=== PATIENT | female | born 1955 | race Caucasian/White ===

== ENCOUNTER → 2017-09-17 | Outpatient (CLI) | payer OTHER ==
[~2017-09-17] MED LIST: DENO60P SQ; HYDR-3583 PO; LYSI1000 PO; PLAQ200T PO; SULF500T3 PO
[2017-09-17 09:24] LABS: AUTOMATED NEUTROPHIL # 7.5 TH/MM3 (1.8-7.7); BASOPHIL # 0.1 TH/MM3 (0-0.2); EOSINOPHIL # 0.6 TH/MM3 (0-0.4); EOSINOPHIL % 5.4 % (0.0-4.0); HEMATOCRIT 42.3 % (35.0-46.0); HEMOGLOBIN 14.3 GM/DL (11.6-15.3); LYMPH % 18.3 % (9.0-44.0); MEAN CELL VOLUME 94.6 FL (80.0-100.0); MEAN CORPUSCULAR HGB CONC 33.8 % (32.0-36.0); MEAN PLATELET VOLUME 9.3 FL (7.0-11.0); MONOCYTE # 0.8 TH/MM3 (0-0.9); NEUT % 68.3 % (16.0-70.0); PLATELET COUNT 255 TH/MM3 (150-450); RED BLOOD COUNT 4.48 MIL/MM3 (4.00-5.30); RED CELL DISTRIBUTION WIDTH 12.8 % (11.6-17.2)
[2017-09-17 09:32] LABS: PROTHROMBIN TIME - PATIENT 9.7 SEC (9.8-11.6)
[2017-09-17 09:44] LABS: BICARBONATE 26.2 MEQ/L (21.0-32.0); CREATININE 0.69 MG/DL (0.50-1.00)
--- NOTE | 2017-09-17 10:13 | RADRPT ---
EXAM DATE/TIME: 09/17/2017 09:57 [facility] COMPARISON: No previous studies available for comparison. INDICATIONS : Evaluate for pneumonia, pneumothorax or communicable disease. Pre op for cervical spine [id number] MEDICAL HISTORY : None. SURGICAL HISTORY : None. ENCOUNTER: Initial ACUITY: 1 day PAIN SCORE: 0/10 LOCATION: Bilateral chest FINDINGS: PA and lateral views of the chest demonstrate the lungs to be symmetrically aerated without evidence of mass, infiltrate or effusion. The cardiomediastinal contours are unremarkable. Osseous structure s are intact. CONCLUSION: No acute disease. Ag Valdivia MD on September 17, 2017 at 10:12 Board Certified Radiologist. This report was verified electronically.
--- NOTE | 2017-09-17 17:47 | EKG ---
Date Performed: 09/17/2017 Time Performed: 09:11:32 PTAGE: 62 years EKG: Sinus rhythm NORMAL ECG NO PREVIOUS TRACING DOCTOR: Annel Farooq Interpretating Date/Time 09/17/2017 17:45:25
== END ==
LOC: CPRE 08:46
PROVIDERS: ATTEND Neurological Surgery
DX: M48.02 Spinal stenosis, cervical region (principal); M54.12 Radiculopathy, cervical region; M79.609 Pain in unspecified limb; Z01.812 Encounter for preprocedural laboratory examination; Z01.818 Encounter for other preprocedural examination
CPT/HCPCS: 36415; 71046; 80048; 85025; 85610; 85730; 87640; 87641; 93005

== ENCOUNTER 2017-09-23 05:51 | Observation (INO) | payer OTHER ==
[~2017-09-23] VITALS: Ht 160 cm; Wt 57.4 kg
[~2017-09-23 05:51] MED LIST changes: -HYDR-3583 PO
[2017-09-23] MEDS ORDERED: LACTATED RINGER'S 1000 ML IV PRN (06:15)
[2017-09-23] MEDS ORDERED: CHLORHEXIDINE GLUCONATE 2 % 1 PACK (2 CLOTHS) TOPICAL PRN (06:15)
[2017-09-23] MEDS ORDERED: SODIUM CHLORID 0.9% 500 ML IV PRN (06:15)
[2017-09-23] MEDS ORDERED: POVIDONE IODINE 5% (ANTISEPSIS KIT) 4 APPLICATIONS EACH NARE PRN (06:15)
[2017-09-23] MEDS ORDERED: CLINDAMYCIN 600 MG/NS PREMIX 50 ML IV SCH (07:00)
[2017-09-23] MEDS ORDERED: PROPOFOL 500 MG/50 ML INJ 100 ML ONE (08:09)
[2017-09-23] MEDS ORDERED: LIDOCAINE 1%/EPINEPHrine 1:100,000 SOLN 30 ML VIAL ONE (08:16)
[2017-09-23] MEDS ORDERED: THROMBIN (TOPICAL) 5,000 UNIT VIAL ONE (08:16)
[2017-09-23] MEDS ORDERED: GELFOAM SIZE 100 ONE (08:17)
[2017-09-23] MEDS ORDERED: GENTAMICIN SULFATE 80 MG/2 ML VIAL ONE (08:17)
[2017-09-23] MEDS ORDERED: CLINDAMYCIN PHOS 600 MG/4 ML VIAL ONE (08:32)
[2017-09-23] MEDS ORDERED: ACETAMINOPHEN 1000 MG/100 ML 100 ML IV ONE (09:06)
[2017-09-23] MEDS ORDERED: *morphine SULFATE 4 MG/ML PERIprocedure ONLY ONE (11:51)
[2017-09-23] MEDS ORDERED: PHENYLEPH/NS 1000 MCG/10 ML SYR IV ONE (12:00)
[2017-09-23] MEDS ORDERED: MORPHINE SULFATE 4 MG/ML INJ IV PUSH PRN (12:00)
[2017-09-23] MEDS ORDERED: NALOXONE HCL 0.4 MG/ML AMP IV PUSH PRN (12:00)
[2017-09-23] MEDS ORDERED: DEXAMETHASONE SOD PHOS 4 MG/ML VIAL IV ONE (12:00)
[2017-09-23] MEDS ORDERED: ONDANSETRON HCL 4 MG/2 ML VIAL IV PUSH PRN (12:00)
[2017-09-23] MEDS ORDERED: ONDANSETRON HCL 4 MG/2 ML VIAL IV ONE (12:00)
[2017-09-23] MEDS ORDERED: ROCURONIUM INJ 50 MG/5 ML SYRINGE IV PUSH ONE (12:00)
[2017-09-23] MEDS ORDERED: SODIUM CHLOR 0.9% 250 ML INJ 250 ML IV ONE (12:00)
[2017-09-23] MEDS ORDERED: ACETAMINOPHEN/HYDROcodone 325 MG/5 MG TAB PO PRN (12:00)
[2017-09-23] MEDS ORDERED: GLYCOPYRROLATE 1 MG/5 ML SYRINGE IV PUSH ONE (12:00)
[2017-09-23] MEDS ORDERED: LIDOCAINE HCL 1% PF 5 ML SYRINGE OTHER ONE (12:00)
[2017-09-23] MEDS ORDERED: ePHEDrine/NS 25 MG/5 ML SYRINGE IV ONE (12:00)
[2017-09-23] MEDS ORDERED: NEOSTIGMINE 5 MG/5 ML SYRINGE IV PUSH ONE (12:00)
[2017-09-23] MEDS ORDERED: PHENYLEPHRINE HCL 10 MG/ML VIAL IV ONE (12:00)
[2017-09-23] MEDS ORDERED: PROPOFOL 200 MG/20 ML AMP IV ONE (12:00)
--- NOTE | 2017-09-23 12:06 | PD.OP ---
Operative Report Date of Surgery: Sep 23, 2017 Preoperative Diagnosis: (1) Cervical disc disorder with radiculopathy (2) Cervical spinal stenosis 1. Cervical degenerative disc disease, C5-6 level 2. Bilateral cervical radiculopathy 3. Cervical stenosis Postoperative Diagnosis: (1) Cervical disc disorder with radiculopathy (2) Cervical spinal stenosis 1. Cervical degenerative disc disease, C5-6 level 2. Bilateral cervical radiculopathy 3. Cervical stenosis Procedure: 1. C5-6 anterior cervical discectomy, resection posterior osteophytic disc complex, bilateral foraminotomy 2. C5-6 anterior interbody fusion, composite allograft bone 3. C5-6 anterior cervical instrumentation Anesthesia: General Surgeon: Rah Melo Heel Breaster(s): Thalia William Operation and Findings: Findings: Significant posterior ossific disc complex with severe bilateral foraminal stenosis. Procedure in detail: The patient was brought into the operating room and positioned in supine position on the 3080 table with the head and neck in neutral position. Abdullahi catheter was placed. Lines were established by Anesthesia. Gen. endotracheal anesthesia was induced without difficulty, taking care not to significantly flex or extend the patient's neck during intubation and positioning. Leads for intraoperative neuro monitoring were placed and a baseline study obtained. All extremities were appropriately padded. The neck and upper chest were shaved with clippers and sterilely prepped and draped. Appropriate timeout procedure was performed with all personnel present and in agreement 1% Xylocaine with epinephrine was used for local infiltration over the incision site which was made transversely at the C5 6 level and carried sharply down through the platysma muscle. The exposure was continued medial to the sternocleidomastoid muscle and carotid artery, and lateral to the trachea and esophagus. The prevertebral fascia was elevated away from the anterior longitudinal ligament with a Kitner sponge. The longus coli muscle on each side was elevated with the Pena elevator. The self-retaining retractor was placed with the blades beneath the longus coli muscle on each side. The appropriate levels were confirmed with intraoperative C-arm and preoperative imaging studies. The microscope was brought into place and used for the remainder of the procedure including the closure. The 14 mm distraction pins were used as needed for gentle distraction during the procedure. The procedure was performed at the C5-6 level The anterior osteophyte was resected with the Leksell rongeur. The disc and annulus was incised with a 15 blade knife and discectomy performed with pituitary biopsy forceps and straight and angled curettes. The TPS drill with the 5 mm barrel bur was used to decorticate the endplates and removed the majority of the osteophyte along the anterior spinal canal as well as the right and left uncovertebral joint. The thin ligament dissector was used to free up the posterior annulus and ligament from the vertebral body margin. The remainder of the resection of the posterior annulus and ligament as well as the posterior osteophyte and bilateral uncovertebral joint was performed with the 2 and 3 mm thin footplate Kerrison rongeurs. A component of herniated nucleus pulposus was encountered posterior to the annulus and was lifted away from the thecal sac with the thickened ligament dissector and removed. Significant posterior osteophyte was encountered and extensively removed. The posterior vertebral bodies were undercut with the Kerrison rongeur and the TPS drill with the 4 mm rob bur as needed to fully decompress the anterior spinal canal. The appropriate size V G2 bone graft was then placed at each level with a good fit of the graft. The blunt nerve hook was used to probe beneath the bone graft to ensure that there was no impingement on the thecal sac or exiting nerve roots. The appropriate size Precision anterior cervical plate was then chosen and the bone screws were placed with the 14 mm fixed screws at the caudal most level and the 14 mm variable screws at the cephalad level of the decompression. The screws were firmly secured and the locking cams engaged. The entire construct was checked with intraoperative C-arm and felt to be satisfactory. The 10 Slovenian drain was brought out through a small incision in the left lower neck and secured to the skin with nylon suture and attached to sterile suction. The closure was performed with 3-0 Vicryl running for the platysma and interrupted for the subcutaneous closure, with 4-0 Vicryl running for the subcuticular closure. A dressing of sterile Mastisol, Steri-Strips, and Primapore dressing was placed. The patient was placed into a cervical collar, and taken to recovery room in stable condition. All counts were correct at the end of the case. Estimated blood loss was 100 cc No specimen was sent to pathology. Intraoperative neuro monitoring remained stable during the procedure. Rah Melo MD Sep 23, 2017 12:06
[2017-09-23] MEDS: D5-1/2 NS + KCL 20 MEQ INJ 1,000 ML IV SCH ×3 (12:11→23:48)
[2017-09-23] MEDS ORDERED: DO NOT ADM ANY ANTICOAGULANT DRUGS PRN (12:15)
[2017-09-23] MEDS ORDERED: MIDAZOLAM HCL 2 MG/2 ML VIAL ONE (12:15)
--- NOTE | 2017-09-23 13:36 | RADRPT ---
EXAM DATE/TIME: 09/23/2017 09:23 [facility] COMPARISON: No previous studies available for comparison. INDICATIONS : Herniated disk anterior cervical fusion. MEDICAL HISTORY : None. SURGICAL HISTORY : None. ENCOUNTER: Initial ACUITY: 1 day PAIN SCORE: Non-responsive. LOCATION: Cervical spine. FINDINGS: Status post anterior cervical fusion at C5-6. Good position of alignment of the cervical spine fusion . CONCLUSION: Good position and alignment. Erich Nguyen MD on September 23, 2017 at 13:34 Board Certified Radiologist. This report was verified electronically.
[2017-09-23 17:15] VITALS: BP 126/69; PULSE 101; RESP 18; TEMP 98.6; O2SAT 94
[2017-09-23 20:00] VITALS: BP 129/61; PULSE 93; RESP 16; TEMP 98.2; O2SAT 93
[2017-09-23] MEDS: DOCUSATE SODIUM 100 MG CAP PO SCH (20:21)
[2017-09-23] MEDS: ACETAMINOPHEN/HYDROcodone 325 MG/10 MG TAB PO PRN (20:21)
[2017-09-24] VITALS: BP 118/69; PULSE 94; RESP 16; TEMP 96.6; O2SAT 93
[2017-09-24] MEDS: ACETAMINOPHEN/HYDROcodone 325 MG/10 MG TAB PO PRN ×3 (02:35→14:04)
[2017-09-24 04:00] VITALS: BP 109/65; PULSE 85; RESP 16; TEMP 96.1; O2SAT 92
[2017-09-24 05:26] LABS: BICARBONATE 25.2 MEQ/L (21.0-32.0); CALCIUM 7.9 MG/DL (8.5-10.1); CREATININE 0.64 MG/DL (0.50-1.00)
[2017-09-24 08:00] VITALS: BP 149/65; PULSE 91; RESP 11; TEMP 97.2; O2SAT 99
[2017-09-24] MEDS: D5-1/2 NS + KCL 20 MEQ INJ 1,000 ML IV SCH (09:00)
[2017-09-24] MEDS ORDERED: HYDROXYCHLOROQUINE SULFATE 200 MG TAB PO SCH (09:00)
[2017-09-24] MEDS ORDERED: sulfaSALAzine 500 MG TAB PO SCH (09:00)
[2017-09-24] MEDS ORDERED: LYSINE HCL PO SCH (09:00)
[2017-09-24] MEDS: DOCUSATE SODIUM 100 MG CAP PO SCH (09:28)
[2017-09-24 12:00] VITALS: BP 161/69; PULSE 96; RESP 16; TEMP 96.8; O2SAT 95
--- NOTE | 2017-09-24 13:23 | HHI.DCPOC ---
Discharge Care Plan Diagnosis: (1) Cervical disc disorder with radiculopathy (2) Cervical spinal stenosis Your Health Problems Are: Incision/Drains Loss of Movements Goals to Promote Your Health * To prevent worsening of your condition and complications * To maintain your health at the optimal level Wear the cervical collar on at all times. It may briefly be removed for personal hygiene. No lifting, bending, pushing, pulling or other strenuous activity. Leave the dressing on over the surgical incision until . After that you may take the outer dressing off but leave the steri-strips on and let them fall off on their own. No showering until the surgical incision is totally healed. Take the pain medication as prescribed. Avoid taking any medication that contains aspirin or NSAIDs (ibuprofen, naproxen , Motrin, Advil, Naprosyn) for at least a month. Follow up in the office approximately for a wound check. Directions to Meet Your Goals Take your medications as prescribed Follow your dietary instruction Follow activity as directed Wear the cervical collar on at all times. It may briefly be removed for personal hygiene. No lifting, bending, pushing, pulling or other strenuous activity. Leave the dressing on over the surgical incision until . After that you may take the outer dressing off but leave the steri-strips on and let them fall off on their own. No showering until the surgical incision is totally healed. Take the pain medication as prescribed. Avoid taking any medication that contains aspirin or NSAIDs (ibuprofen, naproxen , Motrin, Advil, Naprosyn) for at least a month. Follow up in the office approximately for a wound check. Keep your appointments as scheduled Take your immunizations and boosters as scheduled If your symptoms worsen call your PCP, if no PCP go to Urgent Care Center or Emergency Room Smoking is Dangerous to Your Health. Avoid second hand smoke Call the 24-hour hour crisis hotline for domestic abuse at [facility] Kern Sep 24, 2017 13:23
--- NOTE | 2017-09-24 13:27 | HHI.DS ---
Discharge Summary Admission Date Sep 23, 2017 at 12:00 Discharge Date: Sep 24, 2017 Admitting Diagnosis (1) Cervical disc disorder with radiculopathy ICD Code: M50.10 - Cervical disc disorder with radiculopathy, unspecified cervical region (2) Cervical spinal stenosis ICD Code: M48.02 - Spinal stenosis, cervical region Procedures : 1. C5-6 anterior cervical discectomy, resection posterior osteophytic disc complex, bilateral foraminotomy 2. C5-6 anterior interbody fusion, composite allograft bone 3. C5-6 anterior cervical instrumentation CBC/BMP: 09/24/17 0438 Significant Findings Laboratory Tests Test 09/24/17 04:38 Random Glucose 110 MG/DL (74-106) Calcium Level 7.9 MG/DL (8.5-10.1) Hospital Course 09/23: The patient presented to [facility] to have a C5-6 ACDF due to cervical disc disorder with radiculopathy and cervical spinal stenosis. Post- operatively she was admitted to a regular med/surg floor. 09/24: When seen the patient is sitting up in bed watching TV. She reports some pain to the back of the neck as well as to the surgical incision. She does have a "scratchy" throat but she is able to eat and swallow without any difficulty. She denies any pain, numbness, tingling or weakness to the extremities. Physical Therapy evaluated the patient and she was able to ambulate 675 feet independently. No sensorimotor deficits were noted upon examination. The RANGEL drain was discontinued and the patient was discharged home. Pt Condition on Discharge: Good Discharge Disposition: Discharge Home Discharge Instructions DIET: Follow Instructions for: As Tolerated, No Restrictions ACTIVITIES You can perform: Weight Bearing As Erika Activities to Avoid: Lifting/Bending, Strenuous Activity, Bathing, Shower ADDITIONAL Activity Instructio: No lifting, bending, pushing, pulling or other strenuous activity. Wear the cervical collar on at all times. It may briefly be removed for personal hygiene. Leave the dressing on over the surgical incision until . After that you may take the outer dressing off but leave the steri-strips on and let them fall off on their own. No showering until the surgical incision is totally healed. Additional Information Take the pain medication as prescribed. Avoid taking any medication that contains aspirin or NSAIDs (ibuprofen, naproxen , Motrin, Advil, Naprosyn) for at least a month. Follow up in the office approximately for a wound check. Wayne Kern Sep 24, 2017 13:27
--- NOTE | 2017-09-24 13:53 | HHI.NSPN ---
History Chief Complaint: Some pain to the back of the neck and at the surgical incision. Interval History 09/23: The patient presented to [facility] to have a C5-6 ACDF due to cervical disc disorder with radiculopathy and cervical spinal stenosis. Post- operatively she was admitted to a regular med/surg floor. 09/24: When seen the patient is sitting up in bed watching TV. She reports some pain to the back of the neck as well as to the surgical incision. She does have a "scratchy" throat but she is able to eat and swallow without any difficulty. She denies any pain, numbness, tingling or weakness to the extremities. Physical Therapy evaluated the patient and she was able to ambulate 675 feet independently. No sensorimotor deficits were noted upon examination. Exam Results 09/22/17 09/22/17 09/23/17 09/23/17 09/24/17 09/24/17 06:00 18:00 06:00 18:00 06:00 18:00 Intake Total 1600 ml 834 ml Output Total 100 ml 10 ml 5 ml Balance 1500 ml -10 ml 829 ml Intake Oral 600 ml IV Total 1000 ml 834 ml Output Drainage Total 10 ml 5 ml Estimated Blood Loss 100 ml # Voids 1 Vital Signs Date Time Temp Pulse Resp B/P (MAP) Pulse Ox O2 Delivery O2 Flow Rate FiO2 09/24/17 08:00 97.2 91 11 149/65 (93) 99 09/24/17 04:00 96.1 85 16 109/65 (80) 92 09/24/17 00:00 96.6 94 16 118/69 (85) 93 09/23/17 20:00 98.2 93 16 129/61 (83) 93 09/23/17 17:15 98.6 101 18 126/69 (88) 94 09/23/17 16:53 98.7 104 18 122/58 (79) 95 Room Air 09/23/17 15:00 104 19 125/64 (84) 95 09/23/17 14:30 102 15 114/55 (74) 94 09/23/17 14:00 92 16 110/56 (74) 97 09/23/17 13:45 94 12 118/60 (79) 96 09/23/17 13:30 94 14 121/59 (79) 96 09/23/17 13:15 95 14 116/55 (75) 96 09/23/17 13:00 96 17 114/58 (76) 94 09/23/17 12:45 96 20 114/56 (75) 96 09/23/17 12:30 98 16 113/57 (75) 96 09/23/17 12:15 99 16 109/55 (73) 96 09/23/17 12:00 99 12 103/55 (71) 95 09/23/17 11:45 107 18 109/52 (71) 95 09/23/17 11:42 98.4 107 18 112/53 (72) 95 Nasal Cannula 2 Physical Examination GENERAL: Awake & alert sitting in bed watching TV. Affect normal and readily interacts. No apparent distress. HEENT: Normocephalic, atraumatic. PERRLA 3 mm brisk, EOMI. MMM & pink, tongue midline to protrusion. NECK: Gal[place] J cervical collar in place. Midline cervical spine NTTP. Left anterior surgical incision dressing dry & intact TTP w/RANGEL drain to bulb suction w/scant serous drainage noted. No JVD. Trachea midline. RESPIRATORY: CTAB w/o W/R/R, equal excursion, nonlaboured, on RA. CARDIOVASCULAR: S1S2 w/RRR w/o M/G/R, cap refill < 2 sec, no pedal edema. GASTROINTESTINAL: Abdomen soft, nontender, positive bowel sounds. MUSCULOSKELETAL: TOBAR spontaneously & purposefully w/o difficulty. Extremities NTTP. NEUROLOGICAL: AAOx3. Speech clear & appropriate. Follows commands w/o difficulty. CN II through XII appear grossly intact. PERRLA 3 mm brisk, EOMI. Tongue midline to protrusion. Sensation intact to light touch to all extremities. Motor strength is 5/5 to all major flexion & extension muscle groups of the extremities, to include wrist flexors & extensors and hand intrinsics & extrinsics. Lab, Micro, Other Results Recent Impressions Cervical Spine X-Ray 09/23/17 0000 Signed Impressions: Service Date/Time: September 09:23 - CONCLUSION: Good position and alignment. Erich Nguyen MD Laboratory Tests Test 09/24/17 04:38 Blood Urea Nitrogen 8 MG/DL Creatinine 0.64 MG/DL Random Glucose 110 MG/DL Calcium Level 7.9 MG/DL Sodium Level 139 MEQ/L Potassium Level 4.1 MEQ/L Chloride Level 107 MEQ/L Carbon Dioxide Level 25.2 MEQ/L Anion Gap 7 MEQ/L Estimat Glomerular Filtration Rate 95 ML/MIN Medical Decision Making Impression and Plan Impression: 1. Cervical degenerative disc disease, C5-6 level 2. Bilateral cervical radiculopathy 3. Cervical stenosis Patient is doing well post-operatively w/o any radicular symptoms and no evident sensorimotor deficits. Physical Therapy recommends discharge home w/o any skilled needs. POD #1 () s/p: 1. C5-6 anterior cervical discectomy, resection posterior osteophytic disc complex, bilateral foraminotomy 2. C5-6 anterior interbody fusion, composite allograft bone 3. C5-6 anterior cervical instrumentation Plan: [place] J cervical collar at all times. D/C RANGEL drain. Will discharge patient home. Follow up for a wound check approximately . Wayne Kern Sep 24, 2017 13:53
[2017-09-24] MEDS ORDERED: HYDR-3583 PO (14:28)
== END 2017-09-24 15:41 | disposition home or self-care (01) ==
LOC: HSDC 05:51 → EDUNIT# 08:30 → HSDI 12:00 → N06B 17:16
PROVIDERS: ADMIT Neurological Surgery; ATTEND Neurological Surgery
DX: M50.122 Cervical disc disorder at C5-C6 level with radiculopathy (principal); M48.02 Spinal stenosis, cervical region
CPT/HCPCS: 00600; 20930; 22551; 22845; 72020; 76000; 80048; 94150; 97162; C1713; G0378; G8987; G8988; J0131; J1100; J1580; J2250; J2270; J2370; J2405; J2710; J3010; J3480; J7050; L0150; L0172